=== PATIENT | male | born 1995 | race American Indian/Alaskan Native ===

== ENCOUNTER 2020-10-23 13:55 | Emergency (ER) | payer OTHER ==
[2020-10-23 14:38] VITALS: BP 123/76
[2020-10-23] MEDS ORDERED: IBUPROFEN 600 MG TAB PO ONE (15:18)
--- NOTE | 2020-10-23 15:20 | Event Note ---
ED Screening Note Date of service: 10/23/20 Time: 15:18 ED Screening Note: 25-year-old -[place] male presents to the emergency room complaining 8- day history of burning on urination, headache and fever with lower back pain. Patient denies any penile discharge no sex with men. Temp today in triage is 101.4 This initial assessment/diagnostic orders/clinical plan/treatment(s) is/are subject to change based on patients health status, clinical progression and re- assessment by fellow clinical providers in the ED. Further treatment and workup at subsequent clinical providers discretion. Patient/guardian urged not to elope from the ED as their condition may be serious if not clinically assessed and managed. Initial orders include: ua ib 600mg
[2020-10-23 15:45] LABS: Bilirubin,Urine NEG (Negative); Blood,Urine NEG (Negative); Color,Urine Yellow (Yellow); Mucus,Urine FEW /HPF; Protein,Urine <15 mg/dL mg/dL (Negative); Urobilinogen,Urine < 2.0 mg/dL (<2.0)
== END 2020-10-23 19:40 | disposition left against medical advice (07) ==
LOC: ED 13:55
DX: M54.5 Low back pain (principal); R51.9 Headache, unspecified; R50.9 Fever, unspecified; Z53.21 Procedure and treatment not carried out due to patient leaving prior to being seen by health care provider
CPT/HCPCS: 81001